=== PATIENT | female | born 1970 | race Caucasian/White ===

== ENCOUNTER 2023-11-21 11:09 | Emergency (ER) | payer MEDICAID ==
[~2023-11-21] VITALS: Ht 165.1 cm; Wt 66.0 kg
[2023-11-21 11:15] VITALS: O2SAT 100
[2023-11-21 11:51] LABS: CLARITY URINE CLOUDY (CLEAR); COLOR URINE ORANGE (YELLOW); GLUCOSE URINE 3+ (NEGATIVE); KETONES URINE NEGATIVE (NEGATIVE); LEUKOCYTE ESTERASE URINE NEGATIVE (NEGATIVE); NITRITE URINE NEGATIVE (NEGATIVE); OCCULT BLOOD URINE 3+ (NEGATIVE); PH URINE 5.5 (4.5-8.0); PROTEIN URINE 1+ (NEGATIVE); SPECIFIC GRAVITY URINE 1.032 (1.005-1.030); UROBILINOGEN URINE 0.2 E.U./dL (0.2-1.0)
[2023-11-21 12:15] LABS: RBC URINE TNTC /hpf (0-2)
[2023-11-21 12:16] LABS: SQUAMOUS EPITHELIAL CELL URINE FEW /lpf (RARE/1+)
[2023-11-21 12:17] LABS: BACTERIA URINE TRACE
[2023-11-21] MEDS: KETOROLAC 60MG/2ML VIAL IM STA (13:14)
[2023-11-21 13:29] LABS: BASOPHILS % 0.4 % (0.0-2.0); EOSINOPHILS % 0.9 % (0.0-5.0); HEMATOCRIT. 33.8 % (36.0-48.0); HEMOGLOBIN. 10.5 g/dL (12.0-16.0); LYMPHOCYTES % 30.4 % (20.0-50.0); MEAN CORPUSCULAR HEMOGLOBIN 21.1 pg (28.0-32.0); MEAN CORPUSCULAR VOLUME 68.2 fL (81.0-99.0); MONOCYTES % 4.6 % (2.0-8.0); NEUTROPHILS % 63.7 % (40.0-76.0); PLATELET 254 x1000/uL (130-400); RED BLOOD CELL COUNT 4.96 mill/uL (4.2-5.4); RED CELL DISTRIBUTION WIDTH 15.2 % (11.6-14.6); WHITE BLOOD COUNT 6.3 x1000/uL (4.5-11.0)
[2023-11-21 13:30] LABS: ADD RBC MORPHOLOGY YES; DIFFERENTIAL COMMENT 1
[2023-11-21 13:35] LABS: CHLORIDE 97 mEq/L (98-107); POTASSIUM 4.1 mEq/L (3.5-5.1); SODIUM 131 mEq/L (136-145)
[2023-11-21 13:36] LABS: CARBON DIOXIDE 27 mEq/L (21-32)
[2023-11-21 13:41] LABS: UREA NITROGEN BLOOD 16 mg/dL (9-23)
[2023-11-21 13:43] LABS: ALANINE AMINOTRANSFERASE 12 IU/L (10-49); ALBUMIN 4.5 g/dL (3.2-4.8); ASPARTATE AMINOTRANSFERASE 13 IU/L (<34); BILIRUBIN TOTAL 0.2 mg/dL (0.1-1.0); PROTEIN TOTAL 7.5 g/dL (6.0-8.3)
[2023-11-21 14:01] LABS: GLUCOSE 457 mg/dL (70-105)
[2023-11-21 14:43] LABS: ANISOCYTOSIS 1+; MICROCYTOSIS 3+; PLATELET ESTIMATE NORMAL
[2023-11-21] MEDS: INSULIN REGULAR (HUMULIN R) 300UNITS/3ML VIAL SUBCUT ONE (16:00)
[2023-11-21] MEDS ORDERED: NAPR-681 MT (16:56)
[2023-11-21] MEDS ORDERED: CEFP200T13 MT (16:56)
[2023-11-21 17:07] VITALS: BP 130/88; PULSE 111; RESP 19; TEMP 97.7
== END 2023-11-21 17:09 | disposition home or self-care (01) ==
LOC: ER 11:09
DX: R31.9 Hematuria, unspecified (principal); E11.9 Type 2 diabetes mellitus without complications
CPT/HCPCS: 99285; 74176; 80053; 81003; 82962; 87106; 85025; 87086; 36415; 96372; J1885; J1815

== ENCOUNTER 2024-05-01 10:47 | Emergency (ER) | payer MEDICAID ==
[~2024-05-01] VITALS: Ht 170.2 cm; Wt 75.0 kg
[~2024-05-01 10:47] MED LIST: CEFP200T13 MT; NAPR-681 MT
[2024-05-01 10:49] VITALS: O2SAT 98
[2024-05-01] MEDS ORDERED: DICYCLOMINE 10 MG/5 ML ORAL SYR PO STA (11:24)
[2024-05-01 11:25] LABS: BASOPHILS % 0.3 % (0.0-2.0); DIFFERENTIAL COMMENT 0; EOSINOPHILS % 0.8 % (0.0-5.0); HEMATOCRIT. 37.3 % (36.0-48.0); HEMOGLOBIN. 11.4 g/dL (12.0-16.0); LYMPHOCYTES % 21.7 % (20.0-50.0); MEAN CORPUSCULAR HEMOGLOBIN 21.4 pg (28.0-32.0); MEAN CORPUSCULAR HGB CONC 30.6 g/dL (31.0-37.0); MEAN CORPUSCULAR VOLUME 70.1 fL (81.0-99.0); MEAN PLATELET VOLUME 9.4 fl (7.4-10.4); MONOCYTES % 2.3 % (2.0-8.0); NEUTROPHILS % 74.9 % (40.0-76.0); PLATELET 288 x1000/uL (130-400); RED BLOOD CELL COUNT 5.33 mill/uL (4.2-5.4); RED CELL DISTRIBUTION WIDTH 14.9 % (11.6-14.6); WHITE BLOOD COUNT 7.9 x1000/uL (4.5-11.0)
[2024-05-01 11:32] LABS: CHLORIDE 103 mEq/L (98-107); POTASSIUM 3.7 mEq/L (3.5-5.1); SODIUM 135 mEq/L (136-145)
[2024-05-01 11:33] LABS: CARBON DIOXIDE 24 mEq/L (21-32)
[2024-05-01 11:34] LABS: CALCIUM 9.6 mg/dL (8.7-10.4)
[2024-05-01 11:39] LABS: GLUCOSE 325 mg/dL (70-105); UREA NITROGEN BLOOD 14 mg/dL (9-23)
[2024-05-01 11:40] LABS: ALANINE AMINOTRANSFERASE 12 IU/L (10-49); ALBUMIN 4.8 g/dL (3.2-4.8); ASPARTATE AMINOTRANSFERASE 16 IU/L (<34)
[2024-05-01 11:41] LABS: BILIRUBIN TOTAL 0.4 mg/dL (0.1-1.0); PROTEIN TOTAL 7.9 g/dL (6.0-8.3)
[2024-05-01 11:43] LABS: HCG SCREEN NEGATIVE
[2024-05-01 12:02] LABS: BILIRUBIN DIRECT < 0.1 mg/dL (<=3.0)
[2024-05-01] MEDS: ONDANSETRON 4MG ODT PO STA (12:11)
[2024-05-01] MEDS: FAMOTIDINE 20MG TABLET PO ONE (12:11)
[2024-05-01] MEDS: ACETAMINOPHEN 325MG TABLET PO STA (12:11)
[2024-05-01] MEDS: MAGNESIUM/ALUMINUM HYDROXIDE/SIMETHICONE 30ML UDC PO STA (12:12)
[2024-05-01] MEDS ORDERED: DICYCLOMINE HCL 10MG CAPSULE PO NR (12:30)
[2024-05-01] MEDS ORDERED: FAMO-135 MT (13:51)
[2024-05-01 15:29] VITALS: BP 117/70; PULSE 84; RESP 18; TEMP 36.66960; O2SAT 98
== END 2024-05-01 15:29 | disposition home or self-care (01) ==
LOC: ER 10:47
DX: K29.70 Gastritis, unspecified, without bleeding (principal); K76.0 Fatty (change of) liver, not elsewhere classified; E11.9 Type 2 diabetes mellitus without complications; Z98.890 Other specified postprocedural states
CPT/HCPCS: 99284; 76700; 80076; 80048; 84703; 83690; 85025; 36415; Q0162

== ENCOUNTER 2024-06-18 18:33 | Emergency (ER) | payer MEDICAID ==
[~2024-06-18] VITALS: Ht 167.6 cm; Wt 85.0 kg
[~2024-06-18 18:33] MED LIST changes: +FAMO-135 MT
[2024-06-18 18:56] VITALS: O2SAT 99
[2024-06-18] MEDS: SODIUM CHLORIDE 0.9% 1,000 ML IV ONE (20:44)
[2024-06-18] MEDS: FAMOTIDINE 20MG/2ML VIAL IV ONE (20:44)
[2024-06-18] MEDS: ONDANSETRON HCL 4MG/2ML INJ IV ONE (20:45)
[2024-06-18] MEDS: METOCLOPRAMIDE HCL 10MG/2ML VIAL IV ONE (21:31)
[2024-06-18 22:38] LABS: CARBON DIOXIDE 24 mEq/L (21-32); CHLORIDE 98 mEq/L (98-107); POTASSIUM 3.9 mEq/L (3.5-5.1); SODIUM 132 mEq/L (136-145)
[2024-06-18 22:39] LABS: CALCIUM 9.3 mg/dL (8.7-10.4)
[2024-06-18 22:41] LABS: BASOPHILS % 0.2 % (0.0-2.0); HEMATOCRIT. 35.9 % (36.0-48.0); HEMOGLOBIN. 11.1 g/dL (12.0-16.0); LYMPHOCYTES % 11.6 % (20.0-50.0); MEAN CORPUSCULAR HEMOGLOBIN 21.4 pg (28.0-32.0); MEAN CORPUSCULAR VOLUME 69.1 fL (81.0-99.0); MEAN PLATELET VOLUME 9.5 fl (7.4-10.4); MONOCYTES % 5.3 % (2.0-8.0); NEUTROPHILS % 82.9 % (40.0-76.0); PLATELET 258 x1000/uL (130-400); RED BLOOD CELL COUNT 5.19 mill/uL (4.2-5.4); RED CELL DISTRIBUTION WIDTH 15.1 % (11.6-14.6); WHITE BLOOD COUNT 8.8 x1000/uL (4.5-11.0)
[2024-06-18 22:42] LABS: DIFFERENTIAL COMMENT 1
[2024-06-18 22:44] LABS: ADD RBC MORPHOLOGY YES; CREATININE 1.3 mg/dL (0.6-1.0); GLUCOSE 377 mg/dL (70-105); TROPONIN I HIGH SENSITIVITY 11 ng/L (3.0-34); UREA NITROGEN BLOOD 18 mg/dL (9-23)
[2024-06-18 22:45] LABS: ALBUMIN 4.8 g/dL (3.2-4.8)
[2024-06-18 22:46] LABS: ALANINE AMINOTRANSFERASE 12 IU/L (10-49); ASPARTATE AMINOTRANSFERASE 20 IU/L (<34); BILIRUBIN TOTAL 0.2 mg/dL (0.1-1.0); PROTEIN TOTAL 8.2 g/dL (6.0-8.3)
[2024-06-18 22:51] LABS: BILIRUBIN DIRECT < 0.1 mg/dL (<=3.0)
[2024-06-18 22:57] LABS: CLARITY URINE CLEAR (CLEAR); COLOR URINE YELLOW (YELLOW); GLUCOSE URINE 3+ (NEGATIVE); KETONES URINE 1+ (NEGATIVE); LEUKOCYTE ESTERASE URINE NEGATIVE (NEGATIVE); NITRITE URINE NEGATIVE (NEGATIVE); OCCULT BLOOD URINE NEGATIVE (NEGATIVE); PROTEIN URINE 1+ (NEGATIVE); UROBILINOGEN URINE 0.2 E.U./dL (0.2-1.0)
[2024-06-18] MEDS ORDERED: ONDA-239 PO (23:13)
[2024-06-18 23:22] LABS: BACTERIA URINE 1+; SQUAMOUS EPITHELIAL CELL URINE 1+ /lpf (RARE/1+); YEAST URINE 2+
[2024-06-18 23:39] LABS: ANISOCYTOSIS 1+; HYPOCHROMASIA 2+; MICROCYTOSIS 3+; OVALOCYTES 1+; PLATELET ESTIMATE NORMAL
[2024-06-18 23:46] VITALS: BP 142/80; PULSE 90; RESP 18; TEMP 37.11408; O2SAT 99
== END 2024-06-18 23:49 | disposition home or self-care (01) ==
LOC: ER 18:33
DX: K29.70 Gastritis, unspecified, without bleeding (principal); E11.65 Type 2 diabetes mellitus with hyperglycemia; N17.9 Acute kidney failure, unspecified; Z79.1 Long term (current) use of non-steroidal anti-inflammatories (NSAID)
CPT/HCPCS: 80076; 80048; 81003; 82962; 83690; 85025; 86850; 86900; 86901; 84484; 36415; 71045; 74176; 93005; 96361; 96374; 96375; 99285; J3490; J2765; J2405; J7030; Z7610 ×2

== ENCOUNTER 2024-06-20 14:00 | Emergency (ER) | payer MEDICAID ==
[~2024-06-20] VITALS: Ht 162.6 cm; Wt 60.0 kg
[~2024-06-20 14:00] MED LIST changes: +ONDA-239 PO
[2024-06-20 14:14] VITALS: O2SAT 100
[2024-06-20] MEDS: MORPHINE SULFATE 4 MG/ML INJ (FOR IV/IM USE) IV STA (14:50)
[2024-06-20] MEDS: KETOROLAC 30MG/ML VIAL IV STA (14:51)
[2024-06-20] MEDS: SODIUM CHLORIDE 0.9% 1,000 ML IV ONE (14:52)
[2024-06-20 14:58] LABS: BASOPHILS % 0.2 % (0.0-2.0); HEMOGLOBIN. 12.3 g/dL (12.0-16.0); LYMPHOCYTES % 13.7 % (20.0-50.0); MEAN CORPUSCULAR HEMOGLOBIN 21.5 pg (28.0-32.0); MEAN CORPUSCULAR HGB CONC 31.5 g/dL (31.0-37.0); MEAN CORPUSCULAR VOLUME 68.3 fL (81.0-99.0); MONOCYTES % 4.2 % (2.0-8.0); NEUTROPHILS % 81.9 % (40.0-76.0); PLATELET 284 x1000/uL (130-400); RED CELL DISTRIBUTION WIDTH 15.3 % (11.6-14.6); WHITE BLOOD COUNT 6.3 x1000/uL (4.5-11.0)
[2024-06-20 15:02] LABS: ADD RBC MORPHOLOGY YES; CARBON DIOXIDE 24 mEq/L (21-32); CHLORIDE 95 mEq/L (98-107); DIFFERENTIAL COMMENT 1; POTASSIUM 3.4 mEq/L (3.5-5.1); SODIUM 130 mEq/L (136-145)
[2024-06-20 15:03] LABS: CALCIUM 9.3 mg/dL (8.7-10.4)
[2024-06-20 15:04] LABS: INR 0.9; PROTHROMBIN TIME 10.3 sec (9.6-11.0)
[2024-06-20 15:07] LABS: GLUCOSE 261 mg/dL (70-105)
[2024-06-20 15:08] LABS: UREA NITROGEN BLOOD 13 mg/dL (9-23)
[2024-06-20 15:09] LABS: ALANINE AMINOTRANSFERASE 18 IU/L (10-49); ALBUMIN 5.2 g/dL (3.2-4.8); ASPARTATE AMINOTRANSFERASE 31 IU/L (<34)
[2024-06-20 15:10] LABS: BILIRUBIN TOTAL 0.3 mg/dL (0.1-1.0); PROTEIN TOTAL 8.6 g/dL (6.0-8.3)
[2024-06-20 15:19] LABS: BILIRUBIN DIRECT < 0.1 mg/dL (<=3.0); ETHANOL BLOOD < 10 mg/dL (<10)
[2024-06-20 15:34] LABS: MICROCYTOSIS 2+; PLATELET ESTIMATE NORMAL; TARGET CELLS 1+
[2024-06-20 18:36] LABS: CLARITY URINE CLEAR (CLEAR); COLOR URINE YELLOW (YELLOW); GLUCOSE URINE 3+ (NEGATIVE); KETONES URINE 3+ (NEGATIVE); LEUKOCYTE ESTERASE URINE NEGATIVE (NEGATIVE); NITRITE URINE NEGATIVE (NEGATIVE); OCCULT BLOOD URINE NEGATIVE (NEGATIVE); PH URINE 5.5 (4.5-8.0); PROTEIN URINE 2+ (NEGATIVE); SPECIFIC GRAVITY URINE 1.024 (1.005-1.030); UROBILINOGEN URINE 0.2 E.U./dL (0.2-1.0)
[2024-06-20 18:50] LABS: BACTERIA URINE TRACE; RBC URINE NONE SEEN /hpf (0-2); SQUAMOUS EPITHELIAL CELL URINE 1+ /lpf (RARE/1+); WBC URINE 0-2 /hpf (0-2); YEAST URINE 2+
[2024-06-20 18:52] LABS: *AMPHETAMINES SCREEN URINE NEGATIVE (NEGATIVE); *BARBITURATES SCREEN URINE NEGATIVE (NEGATIVE); *BENZODIAZEPINES SCREEN URINE NEGATIVE (NEGATIVE); *COCAINE SCREEN URINE NEGATIVE (NEGATIVE); CANNABINOID URINE SCREEN NEGATIVE (NEGATIVE); ECSTASY MDMA SCREEN URINE NEGATIVE (NEGATIVE); METHADONE URINE SCREEN NEGATIVE (NEGATIVE); OPIATES URINE SCREEN PRESUMPTIVE POSITIVE (NEGATIVE); PHENCYCLIDINE URINE SCREEN NEGATIVE (NEGATIVE)
[2024-06-20] MEDS ORDERED: FLUCONAZOLE 200MG/100ML PREMIX IV ONE (19:00)
[2024-06-20] MEDS: POTASSIUM CHLORIDE 20MEQ TABLET SR PO NR (19:10)
[2024-06-20] MEDS: FLUCONAZOLE 200 MG/100ML BAG 100 ML IV NR (19:15)
[2024-06-20] MEDS ORDERED: FLUC200T51 MT (19:22)
[2024-06-20 23:39] VITALS: BP 150/79; PULSE 90; RESP 18; TEMP 36.66960; O2SAT 100
== END 2024-06-20 23:41 | disposition home or self-care (01) ==
LOC: ER 14:03
DX: N39.0 Urinary tract infection, site not specified (principal); R10.31 Right lower quadrant pain; E11.40 Type 2 diabetes mellitus with diabetic neuropathy, unspecified; Z79.1 Long term (current) use of non-steroidal anti-inflammatories (NSAID)
CPT/HCPCS: 80076; 80305; 80048; 81003; 80320; 83690; 85025; 85610; 36415; 74176; 96361; 96365; 96375; 99285; J1450; J1885; J2270; J7030; G0480